=== PATIENT | female | born 1965 | race Caucasian/White ===

== ENCOUNTER 2016-09-23 14:31 | Day surgery (SDC) | payer OTHER ==
[2016-09-22 16:33] VITALS: BMI 20.0
[~2016-09-23] VITALS: Ht 165.1 cm; Wt 120.0 kg
[2016-09-23] VITALS (9 sets, daily range): BP systolic 105–115; BP diastolic 52–75; PULSE 72–88; RESP 8–20; Ht 165.1 cm; Wt 120.0 kg
[~2016-09-23 14:31] MED LIST: CEFAZOLIN 1 GM INJ ONE; EPHEDrine SULFATE 50 MG/5 ML SYG ONE; LAMO200T18 PO
--- NOTE | 2016-09-23 16:03 | HPN ---
Date/Time of Note Date/Time of Note DATE: 09/23/16 TIME: 16:03 Interval H&P Admission Note Pt. seen H&P reviewed: No system changes AYESHA CORTES MD Sep 23, 2016 16:03
[2016-09-23] MEDS ORDERED: ONDANSETRON 4 MG INJ ONE (16:24)
[2016-09-23] MEDS ORDERED: FENTAnyl 50 MCG/ML VIAL ONE (16:24)
[2016-09-23] MEDS ORDERED: PHENYLephrine (100 MCG/ML) 5ML SYG ONE (16:24)
[2016-09-23] MEDS ORDERED: LIDOCAINE 2% (SDV) 5 ML INJ ONE (16:24)
[2016-09-23] MEDS ORDERED: DEXAMETHASONE 4 MG/ML 1 ML INJ ONE (16:24)
[2016-09-23] MEDS ORDERED: PROPOFOL 20 ML ONE (16:24)
[2016-09-23] MEDS ORDERED: MIDAZOLAM 1 MG/ML 2 ML INJ ONE (16:25)
[2016-09-23] MEDS ORDERED: POLYMYXIN/BACITRACIN 1L IRRIG IRR ONE (16:59)
[2016-09-23] MEDS ORDERED: METOCLOPRAMIDE 10 MG INJ ONE (17:07)
[2016-09-23] MEDS ORDERED: ACETAMINOPHEN 1000MG/100ML IV 100 ML ONE (17:12)
[2016-09-23] MEDS ORDERED: morphine 10 MG INJ ONE (17:16)
[2016-09-23] MEDS ORDERED: ONDANSETRON 4 MG INJ IV PRN ×2 (17:30→18:00)
[2016-09-23] MEDS ORDERED: PROCHLORPERAZINE 10 MG INJ IV PRN (17:30)
[2016-09-23] MEDS ORDERED: HYDROmorphONE (0.2 MG/ML) 10ML SYG IV PRN ×3 (17:30)
[2016-09-23] MEDS ORDERED: TRIMETHOBENZAMIDE 100 MG/ML VIAL IM PRN (17:30)
[2016-09-23] MEDS ORDERED: OXYCODONE/ACETAMINOPHEN (5/325) TAB PO PRN ×2 (17:30)
[2016-09-23] MEDS ORDERED: DIPHENHYDRAMINE 50 MG INJ IV PRN (17:30)
[2016-09-23] MEDS ORDERED: MIDAZOLAM 1 MG/ML 2 ML INJ IV PRN (17:30)
[2016-09-23] MEDS ORDERED: FENTAnyl 50 MCG/ML VIAL IV PRN ×3 (17:30)
[2016-09-23] MEDS ORDERED: METOCLOPRAMIDE 10 MG INJ IV PRN (17:30)
[2016-09-23] MEDS ORDERED: morphine 10 MG INJ IV PRN (18:00)
[2016-09-23] MEDS ORDERED: morphine 2 MG INJ IV PRN (18:00)
[2016-09-23] MEDS ORDERED: HYDROCODONE/APAP (5/325) TAB PO PRN (18:00)
[2016-09-23] MEDS ORDERED: KETOROLAC 30 MG INJ ONE (18:03)
--- NOTE | 2016-09-23 19:29 | RADRPT ---
PROCEDURE: Intraoperative imaging of the right ankle with fluoroscopy. CLINICAL INDICATION: Right ankle pain. Intraoperative. TECHNIQUE: Four images of the right ankle were obtained in the operating room with an image intens ifier. No radiologist was in attendance. Fluoroscopy time is 11.8 seconds. COMPARISON: No prior study is available for comparison. FINDINGS: Surgical instruments are noted overlying the right ankle. Images demonstrate placement of a cannulated screws transfixing the fracture of the medial malleolus . IMPRESSION: 1. Intraoperative imaging of the right ankle. RPTAT: QQ .Brandon Juárez MD, MD Date Time Electronically viewed and signed by .Brandon Juárez MD, on 09/23/2016 19:28 .R/
[2016-09-23] MEDS ORDERED: KETOROLAC 30 MG INJ IM STA (20:00)
--- NOTE | 2016-09-24 16:54 | RADRPT ---
PROCEDURE: XR Right Ankle. CLINICAL INDICATION: Right ankle pain. TECHNIQUE: 2 views. Frontal and lateral. COMPARISON: Intraoperative imaging of the right ankle done earlier the same day. FINDINGS: Bone detail is obscured by the overlying splint. There is a single cannulated screw transfixing the fracture of the medial malleolus. Alignment is s atisfactory. There is no other fracture and there is no dislocation. There is no lytic or blastic lesion. IMPRESSION: 1. Satisfactory postoperative appearance of the right ankle. RPTAT: QQ .Brandon Juárez MD, MD Date Time Electronically viewed and signed by .Brandon Juárez MD, MD on 09/24/2016 16:53 .R/
--- NOTE | 2016-09-26 11:46 | OPR ---
DATE OF OPERATION: 09/23/2016 SURGEON: Narayan Soler MD. MOLDER HELPER: None. PREOPERATIVE DIAGNOSIS: Right ankle tibial-medial malleolus fracture. POSTOPERATIVE DIAGNOSIS: Right ankle tibial-medial malleolus fracture. OPERATION PERFORMED: 1. Open reduction internal fixation right ankle medial malleolus fracture. 2. Intraoperative fluoroscopy. 3. Interpretation x-ray. ANESTHESIA: General endotracheal anesthesia. INDICATIONS: The patient is a 50-year-old female who sustained a fall resulting in a slightly displaced and rotated medial malleolus fracture. I did discuss operative/nonoperative treatment, the patient wanted to proceed with operative treatment, for which she now presents. The risks and benefits including infection, bleeding, blood clots, hardware failure, hardware prominence, nerve damage, blood vessel damage, along with anesthetic, medical and surgical complications were discussed. Informed consent was obtained. OPERATIVE PROCEDURE: The patient's right extremity was identified in the preoperative area. She was brought back to the operating room where she had general endotracheal anesthesia. The right lower extremity was prepped and draped in the usual standard manner. A time out was performed. I then made an incision overlying the medial malleolus. The fracture was easily delineated. The fracture was anatomically reduced. I put two K- wires from the 4.0 mm cannulated screw set. I then put screw anteriorly. Once the screw went all the way down, this caused the anterior part of the medial malleolus fracture to split, causing slight comminution. So at his time, I took out the screw and I did put a screw through the posterior K-wire, this allowed me to compress the fracture and reduce it anatomically. I did not have any bone anteriorly to put another screw, and posteriorly there was not enough bone. I did this carefully look- at x-ray that showed anatomic reduction of the fracture, so at this point I made the decision to only treat this with one screw due to the comminuted bone anteriorly. A this point, I thoroughly irrigated the wound, closed the subcutaneous tissue with #2-0 Vicryl. The skin with running#3-0 Monocryl. Dry sterile dressings were applied. A posterior splint was placed. The patient was then extubated and transported to the Recovery room in stable condition. The toes were warm and well-perfused at the end of the case. Dictated By: Narayan Soler MD /da/herb /Document#: [id number]
== END 2016-09-23 19:11 | disposition home or self-care (01) ==
LOC: SDS 14:31
PROVIDERS: ATTEND Specialist
DX: S82.51XD Displaced fracture of medial malleolus of right tibia, subsequent encounter for closed fracture with routine healing (principal); X58.XXXD Exposure to other specified factors, subsequent encounter; E78.5 Hyperlipidemia, unspecified
CPT/HCPCS: 27766; 73600; 73610; 84703; C1713; J0131; J0690; J1100; J1885; J2250; J2270; J2405; J2765; J3010; Z7512; Z7610; J2370